=== PATIENT | female | born 1980 | race American Indian/Alaskan Native ===

== ENCOUNTER 2021-05-20 13:18 | Emergency (ER) | payer MEDICAID ==
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
[2021-05-20 17:17] VITALS: BP 111/69
== END 2021-05-20 17:20 | disposition home or self-care (01) ==
LOC: ED 13:18
DX: M54.2 Cervicalgia (principal); M79.10 Myalgia, unspecified site; Z88.0 Allergy status to penicillin; Z88.1 Allergy status to other antibiotic agents; F17.200 Nicotine dependence, unspecified, uncomplicated; F10.20 Alcohol dependence, uncomplicated; V89.2XXA Person injured in unspecified motor-vehicle accident, traffic, initial encounter; Y93.89 Activity, other specified; Y92.89 Other specified places as the place of occurrence of the external cause; Y99.8 Other external cause status
CPT/HCPCS: 72040; 99283